=== PATIENT | male | born 1985 | race Two or more races ===

== ENCOUNTER → 2018-06-22 | Outpatient (CLI) | payer OTHER ==
[2018-06-22 12:23] LABS: Basophils # (auto) 0 uL; Basophils % (auto) 0.7 % (0.0-2.0); Eosinophils # (auto) 0.3 uL; Hemoglobin 15.5 g/dL (13.5-17.5); Lymphocytes # (auto) 1.8 uL; Lymphocytes % (auto) 29.7 % (10.0-50.0); Mean Corpuscular Hemoglobin 28.8 pg (28.0-32.0); Mean Corpuscular Hgb Conc. 33.7 g/dL (32.0-36.0); Mean Corpuscular Volume 85.3 fL (80.0-100.0); Monocytes # (auto) 0.3 uL; Neutrophils # (auto) 3.8 uL; Neutrophils % (auto) 60.6 % (37.0-80.0); Nucleated Red Blood Cells % 0.4 %; Platelet Count (auto) 237 10^3/uL (140-450); Red Blood Cells 5.39 10^6/uL (4.5-5.90); Red Cell Distribution Width 13.2 % (11.8-14.3); White Blood Cell 6.2 10^3/uL (4.4-10.8)
[2018-06-22 12:41] LABS: Albumin 4.2 g/dL (3.4-5.0); Calcium 9.3 mg/dL (8.5-10.1); Potassium 3.9 mmol/L (3.5-5.1)
[2018-06-22 12:48] LABS: BUN/Creatinine Ratio 17.3; Bilirubin, Direct 0.1 mg/dL (0-0.2); Bilirubin, Total 0.6 mg/dL (0.2-1.0); Total Protein 8.5 g/dL (6.4-8.2)
== END | disposition home or self-care (01) ==
LOC: LAB 08:40
PROVIDERS: ATTEND Internal Medicine Cardiovascular Disease
DX: Z00.01 Encounter for general adult medical examination with abnormal findings (principal); K74.1 Hepatic sclerosis; E29.1 Testicular hypofunction; E03.9 Hypothyroidism, unspecified; D64.9 Anemia, unspecified; E51.9 Thiamine deficiency, unspecified; E11.9 Type 2 diabetes mellitus without complications
CPT/HCPCS: 36415; 80048; 80061; 80076; 82306; 83036; 84402; 84403; 84443; 85025

== ENCOUNTER → 2019-07-03 | Outpatient (CLI) | payer OTHER ==
[2019-07-03 12:07] LABS: Basophils # (auto) 0.1 uL; Eosinophils # (auto) 0.3 uL; Eosinophils % (auto) 4.5 % (0.0-7.0); Hematocrit 44.8 % (41.0-53.0); Hemoglobin 15.4 g/dL (13.5-17.5); Lymphocytes # (auto) 2.2 uL; Lymphocytes % (auto) 34.1 % (10.0-50.0); Mean Corpuscular Hemoglobin 29.2 pg (28.0-32.0); Mean Corpuscular Hgb Conc. 34.4 g/dL (32.0-36.0); Mean Corpuscular Volume 84.8 fL (80.0-100.0); Monocytes # (auto) 0.3 uL; Monocytes % (auto) 5.2 % (0.0-12.0); Neutrophils # (auto) 3.5 uL; Neutrophils % (auto) 55.2 % (37.0-80.0); Nucleated Red Blood Cells % 0.2 %; Platelet Count (auto) 251 10^3/uL (140-450); Red Blood Cells 5.28 10^6/uL (4.5-5.90); Red Cell Distribution Width 13.4 % (11.8-14.3); White Blood Cell 6.4 10^3/uL (4.4-10.8)
[2019-07-03 12:34] LABS: Albumin 4.2 g/dL (3.4-5.0); Bilirubin, Direct 0.1 mg/dL (0-0.2); Bilirubin, Total 0.4 mg/dL (0.2-1.0); Calcium 9.2 mg/dL (8.5-10.1); Total Protein 8.2 g/dL (6.4-8.2); Uric Acid 6.4 mg/dL (3.5-7.2)
== END | disposition home or self-care (01) ==
LOC: LAB 09:09
PROVIDERS: ATTEND Internal Medicine
DX: Z00.00 Encounter for general adult medical examination without abnormal findings (principal); E03.9 Hypothyroidism, unspecified; K90.9 Intestinal malabsorption, unspecified; C61 Malignant neoplasm of prostate; E29.1 Testicular hypofunction; R70.0 Elevated erythrocyte sedimentation rate; M05.9 Rheumatoid arthritis with rheumatoid factor, unspecified; Z79.899 Other long term (current) drug therapy
CPT/HCPCS: 36415; 80048; 80061; 80076; 82306; 83036; 84153; 84403; 84443; 84550; 85025; 85652; 86431

== ENCOUNTER → 2019-07-10 | Outpatient (CLI) | payer OTHER | END | disposition home or self-care (01) | LOC: Rad HDHVI 14:56 | PROVIDERS: ATTEND Internal Medicine | DX: M25.511 Pain in right shoulder (principal); R07.9 Chest pain, unspecified; M54.2 Cervicalgia | CPT/HCPCS: 71101; 72040; 73030 ==

== ENCOUNTER → 2024-10-29 | Day surgery (SDC) | payer BC, OTHER ==
[~2024-10-29] VITALS: Ht 185.4 cm; Wt 132.2 kg
[~2024-10-29] MED LIST: DexAMETHasone SOD PHOS 10MG/1ML VIAL INJ ONE; HYDROmorphone HCL 2 MG/ML VL/or syr IV PRN; HYDROmorphone HCL 2 MG/ML VL/or syr ONE; KETOROLAC TROMETH 30 MG/ML 1ML VIAL IV ONE; KETOROLAC TROMETH 30 MG/ML 1ML VIAL ONE; MIDAZOLAM HCL 2MG/2ML 2ml VIAL (1mg/ml) IV PRN; MIDAZOLAM HCL 2MG/2ML 2ml VIAL (1mg/ml) ONE; MORPHINE SULFATE 4 MG/ML SYR/VIAL IV PRN; ONDANSETRON HCL 4 MG/2 ML VIAL IV ONE; PROPOFOL 10 MG/ML 20 ML IV ONE; ceFAZolin 2 GM/D5W100ml 100 ML IV ONE; ePHEDrine SULFATE 50 MG/ML AMP IV PRN; fentaNYL CITRATE 100 MCG/2 ML VL ONE; hydrALAZINE HCL 20 MG/ML VL IV PRN
--- NOTE | 2024-10-29 07:18 | ED.PDOC ---
Musculoskeletal HPI Comments 39 year old male presents to the ED with chief complaint of pre-op. Patient reports that he had injured his left bicep when trying to stop his kids from sliding into a tree on 10/13/24, causing a full bicep tear. Patient relays that he was advised by his orthopedist CARMINE Jenkins to come into the ED today for pre-op and admission to have his surgery performed today on his left bicep. Patient denies any numbness, weakness, or any other symptom at this time. Time Seen by MD: 07:13 Reviewed Notes: Nurses Notes, Medications, Allergies Allergies: Coded Allergies: Penicillins (Verified Allergy, Unknown, 10/29/24) Information Source: Patient, Spouse Mode of Arrival: Ambulatory Location: Left Timing: Weeks Prehospital treatment: None Severity: Moderate Able to Move Extremity: Yes Bear Weight: Fully Pain: Moderate Mechanism: Spontaneous Circumstances: Playing Onset of Symptoms: After Trauma Symptoms: Pain DVT Risk Factors: NONE Past Medical History Past Medical History (Other): Left full bicep tear Surgical History: Denies all surgeries Family History Family History: Reviewed,noncontributory to illness Social History Smoker: Non-Smoker Alcohol: Denies ETOH Use Drugs: Denies Drug Use Lives In: Home Constitutional: denies: chills, diaphoresis, fatigue, fever, malaise, sweats, weakness, others EENTM: denies: blurred vision, double vision, ear bleeding, ear discharge, ear drainage, ear pain, ear ringing, eye pain, eye redness, hearing loss, mouth pain, mouth swelling, nasal discharge, nose bleeding, nose congestion, nose pain, photophobia, tearing, throat pain, throat swelling, voice changes, others Respiratory: denies: cough, hemoptysis, orthopnea, SOB at rest, shortness of breath, SOB with excertion, stridor, wheezing, others Cardiovascular: denies: chest pain, dizzy spells, diaphoresis, Dyspnea on exertion, edema, irregular heart beat, left arm pain, lightheadedness, palpitations, PND, syncope, others Gastrointestinal: denies: abdomen distended, abdominal pain, blood streaked bowels, constipated, diarrhea, dysphagia, difficulty swallowing, hematemesis, melena, nausea, poor appetite, poor fluid intake, rectal bleeding, rectal pain, vomiting, others Genitourinary: denies: burning, dysuria, flank pain, frequency, hematuria, incontinence, penile discharge, penile sore, pain, testicle pain, testicle swelling, urgency, others Neurological: denies: dizziness, fainting, headache, left sided numbness, left sided weakness, numbness, paresthesia, pre-existing deficit, right sided numbness, right sided weakness, seizure, speech problems, tingling, tremors, weakness, others Musculoskeletal: denies: back pain, gout, joint pain, joint swelling, muscle pain, muscle stiffness, neck pain, others Integumetry: denies: bruises, change in color, change in hair/nails, dryness, laceration, lesions, lumps, rash, wounds, others Allergic/Immunocompromised: denies: Difficulty Healing, Frequent Infections, Hives, Itching, others Hematologic/Lymphatic: denies: anemia, blood clots, easy bleeding, easy bruising, swollen glands, others Endocrine: denies: excessive hunger, excessive sweating, excessive thirst, excessive urination, flushing, intolerance to cold, intolerance to heat, unexplained weight gain, unexplained weight loss, others Psychiatric: denies: anxiety, bipolar disorder, depression, hopeless, panic disorder, schizophrenia, sleepless, suicidal, others All Other Systems: Reviewed and Negative Physical Exam General Appearance: Moderate Distress, Normal HEENT: Normal ENT Inspection, PERRL/EOMI Neck: Full Range of Motion, Non-Tender, Normal, Normal Inspection Respiratory: Chest Non-Tender, Lungs Clear, No Accessory Muscle Use, No Respiratory Distress, Normal Breath Sounds Cardiovascular: No Edema, No JVD, No Murmur, No Gallop, Normal Peripheral Pulses, Regular Rate/Rhythm Breast Exam: Deferred Gastrointestinal: No Organomegaly, Non Tender, No Pulsatile Mass, Normal Bowel Sounds, Soft Genitalia: Deferred Pelvic: Deferred Rectal: Deferred Extremities: No calf tenderness, Normal capillary refill, Normal inspection, Normal range of motion, Non-tender, No pedal edema Musculoskeletal : Apperance: Normal Neurologic: Alert, systems design engineer II-XII nml as Tested, No Motor Deficits, Normal Affect, Normal Mood, No Sensory Deficits Cerebellar Function: Normal Reflexes: Normal Skin: Dry, Normal Color, Warm Peripheral Pulses: 3+ Radial (R), 3+ Radial (L) Lymphatic: No Adenopathy Was a procedure done? Was a procedure done?: No Differential Diagnosis EXT Differential Diagnosis: Sprain, Strain X-Ray, Labs, Meds, VS Vital Signs Date Time Temp Pulse Resp B/P (MAP) Pulse Ox O2 Delivery O2 Flow Rate FiO2 10/29/24 07:32 98.1 99 20 120/81 (94) 99 98.1 10/29/24 07:30 Room Air* 0 21 10/29/24 07:18 98.3 66 20 119/76 (90) 9 Lab Test 10/29/24 07:45 Range/Units White Blood Count 6.3 4.4-10.8 10^3/uL Red Blood Count 5.31 4.5-5.90 10^6/uL Hemoglobin 15.1 13.5-17.5 g/dL Hematocrit 44.7 41.0-53.0 % Mean Corpuscular Volume 84.2 80.0-100.0 fL Mean Corpuscular Hemoglobin 28.5 28.0-32.0 pg Mean Corpuscular Hemoglobin Concent 33.8 32.0-36.0 g/dL Red Cell Distribution Width 13.4 11.8-14.3 % Platelet Count 244 140-450 10^3/uL Mean Platelet Volume 7.8 6.9-10.8 fL Neutrophils (%) (Auto) 66.0 37.0-80.0 % Lymphocytes (%) (Auto) 23.9 10.0-50.0 % Monocytes (%) (Auto) 5.0 0.0-12.0 % Eosinophils (%) (Auto) 4.5 0.0-7.0 % Basophils (%) (Auto) 0.6 0.0-2.0 % Neutrophils # (Auto) 4.1 1.6-8.6 10 ^3/uL Lymphocytes # (Auto) 1.5 0.4-5.4 10 ^3/uL Monocytes # (Auto) 0.3 0-1.3 10 ^3/uL Eosinophils # (Auto) 0.3 0-0.8 10 ^3/uL Basophils # (Auto) 0 0-0.2 10 ^3/uL Nucleated Red Blood Cells 0.3 % Prothrombin Time 10.3 9.3-11.8 sec Prothrombin Time INR 0.97 0.9-1.15 Activated Partial Thromboplast Time 26.6 24.5-34.5 SEC Sodium Level 140 136-145 mmol/L Potassium Level 4.2 3.5-5.1 mmol/L Chloride Level 107 98-107 mmol/L Carbon Dioxide Level 26 20-31 mmol/L Anion Gap 7 5-15 Blood Urea Nitrogen 12 9-23 mg/dL Creatinine 0.91 0.700-1.30 mg/dL Glomerular Filtration Rate Calc 111 >90 mL/min BUN/Creatinine Ratio 13.2 10.0-20.0 Serum Glucose 107 H 74-106 mg/dL Calcium Level 10.1 8.7-10.4 mg/dL Total Bilirubin 0.5 0.2-1.0 mg/dL Aspartate Amino Transferase (AST) 20 13-40 U/L Alanine Aminotransferase (ALT) 28 7-40 U/L Alkaline Phosphatase Pending Total Protein 7.9 5.7-8.2 g/dL Albumin 5.0 H 3.2-4.8 g/dL Patient alert. Came in because of left arm pain pain Was supposed to be operate on today. Vitals stable. He does have biceps injury. Spoke with the orthopedic surgeon. Explained to the family Continue monitoring. Chest XR:FINDINGS: The heart and mediastinal contours are grossly unremarkable. There is no evidence of pleural disease. The lungs are clear. The bony structures of the chest are intact without fracture. IMPRESSION: 1. No evidence of acute disease. Time of 1ST Reevaluation: 08:13 Reevaluation 1ST: Unchanged Patient Education/Counseling: Diagnosis, Treatment Family Education/Counseling: Diagnosis, Treatment Additional Information Previous visit documents reviewed: None The following tests were ordered, and results were reviewed by me: Chest XR, CBC, BMP, UA, PTPTT Additional Information was gathered from interviewing the following independent historians: I reviewed and agreed with the following test results read by other providers: Chest XR I discussed treatment and results with medical personnel and . Departure 1 Departure Time of Disposition: 07:28 Impression: Primary Impression: Injury of biceps brachii muscle Disposition: ADMITTED INPATIENT Admit to: Med Surg Condition: Guarded Critical Care Note Critical Care Time?: No Stability Stability form required: No Heart Score Heart Score: Heart Score Response (Comments) Value History N/A 0 EKG N/A 0 Age N/A 0 Risk Factors N/A 0 Troponin N/A 0 Total 0 I personally scribed for DAVE PASCUAL MD ([email or web address]) on 10/29/24 at 07:18. Electronically submitted by Manuel Vásquez ([email or web address]). I personally scribed for DAVE PASCUAL MD ([email or web address]) on 10/29/24 at 08:36. Electronically submitted by Manuel Vásquez ([email or web address]). DAVE PASCUAL MD Oct 29, 2024 07:18
[2024-10-29 08:05] LABS: Basophils # (auto) 0 10 ^3/uL (0-0.2); Basophils % (auto) 0.6 % (0.0-2.0); Eosinophils # (auto) 0.3 10 ^3/uL (0-0.8); Eosinophils % (auto) 4.5 % (0.0-7.0); Hematocrit 44.7 % (41.0-53.0); Hemoglobin 15.1 g/dL (13.5-17.5); Lymphocytes # (auto) 1.5 10 ^3/uL (0.4-5.4); Lymphocytes % (auto) 23.9 % (10.0-50.0); Mean Corpuscular Hemoglobin 28.5 pg (28.0-32.0); Mean Corpuscular Hgb Conc. 33.8 g/dL (32.0-36.0); Mean Corpuscular Volume 84.2 fL (80.0-100.0); Monocytes # (auto) 0.3 10 ^3/uL (0-1.3); Neutrophils # (auto) 4.1 10 ^3/uL (1.6-8.6); Nucleated Red Blood Cells % 0.3 %; Platelet Count (auto) 244 10^3/uL (140-450); Red Blood Cells 5.31 10^6/uL (4.5-5.90); Red Cell Distribution Width 13.4 % (11.8-14.3); White Blood Cell 6.3 10^3/uL (4.4-10.8)
[2024-10-29 08:17] LABS: Alanine Aminotransferase 28 U/L (7-40); Anion Gap 7 (5-15); Aspartate Aminotransferase 20 U/L (13-40); BUN/Creatinine Ratio 13.2 (10.0-20.0); Blood Urea Nitrogen 12 mg/dL (9-23); Calcium 10.1 mg/dL (8.7-10.4); Carbon Dioxide 26 mmol/L (20-31); Potassium 4.2 mmol/L (3.5-5.1); Sodium 140 mmol/L (136-145); Total Protein 7.9 g/dL (5.7-8.2)
[2024-10-29 08:18] LABS: Bilirubin, Total 0.5 mg/dL (0.2-1.0)
[2024-10-29 08:19] LABS: Chloride 107 mmol/L (98-107); Glucose 107 mg/dL (74-106)
--- NOTE | 2024-10-29 08:20 | DVH ---
INDICATION: sob TECHNIQUE: Frontal view of the chest. COMPARISON: None FINDINGS: The heart and mediastinal contours are grossly unremarkable. There is no evidence of pleural disease . The lungs are clear. The bony structures of the chest are intact without fracture. IMPRESSION: 1. No evidence of acute disease.
[2024-10-29 08:21] LABS: INR 0.97 (0.9-1.15); Partial Thromboplastin Time 26.6 SEC (24.5-34.5); Prothrombin Time 10.3 sec (9.3-11.8)
[2024-10-29 10:10] LABS: Alkaline Phosphatase 71 U/L (46-116)
[2024-10-29 10:28] LABS: Urine Bacteria None Seen /hpf (None Seen)
[2024-10-29 11:47] LABS: Urine Blood TRACE /uL (Negative); Urine Clarity Clear (Clear); Urine Color Yellow (Yellow); Urine Mucus FEW (None Seen); Urine Protein, UAD Negative (Negative); Urine Specific Gravity 1.027 (1.001-1.035); Urine Squamous Epithelial Cell FEW /hpf (<5); Urine Urobilinogen Normal (Negative); Urine WBC 3 /HPF (0-3)
[2024-10-29] MEDS: BUPIVACAINE 0.5% MPF INJ 30ML SDV IJ ONE (13:26)
--- NOTE | 2024-10-29 14:52 | DVHOP2 ---
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 Clinical and radiological evaluation demonstrated distal biceps rupture. He already had an MRI. He had felt a pop while doing some work. Nonoperative and operative management options were disc ussed. Surgery in the form of distal bicep tendon repair was discussed. Pros and cons were discussed. Specifically posterior interosseous nerve, median antebrachial cutaneous nerve and neurovascular injury was discussed with him in very detail manner. Consequences of PIN palsy including wrist drop, loss of thumb extension, need for further surgeries, need for nerve exploration, need for tendon transfer, need for volar splint was discussed. He decided to proceed with surgical option. The patient was informed of the risks and benefits of the procedure. These include but are not limited to complications of anesthesia, postoperative infection, incomplete relief of symptoms, recurrence of symptoms, damage to blood vessels, nerves and tendons, deep venous thrombosis, pulmonary embolism and possible need for repeat surgery in the future. Complications: None Estimated Blood Loss: 5 ml Indications for Surgery: The patient presented with injury to the elbow. Clinical and radiological evaluation demonstrated distal biceps tendon rupture. Non-op and operative management was clearly discussed on multiple occasions, first by the PA and then with me in the pre-op area. Posterior Interosseous nerve deficit was discussed in detail. It was mentioned that he can choose non-op management and still expect good to excellent results with some weakness in supination and occasional cramping. Benefits, risks and treatment alternatives to surgery were discussed. Pros and cons of various treatment options were discussed. Surgical complications including neurovascular injury, stiffness, heterotropic ossification, infection, dislocation, fracture, loss of limb or life were discussed. The patient/family decided to proceed with the surgery Name of Procedure Performed Left distal biceps tendon repair Procedure Details Procedure Details: The patient was identified in the pre-operative area and consent was verified. Positioning: The patient was positioned supine with the arm extended and the forearm in a neutral position. A tourniquet was applied to minimize blood loss. A time out was called for verifying the identity of the patient, the site of the surgery, the availability of implants and Xrays and allergies to medications. Incision: A longitudinal incision was made over the antecubital fossa to expose the deep layer. This was carefully dissected. The brachioradialis muscle was retracted laterally. The cutaneous nerve was protected. The biceps tendon and the radial tuberosity footprint was identified. Identification of the Tendon: The ruptured biceps tendon was identified.It was minimally retracted and was mobilized to reach the radial tuberosity. Preparation cf the Tendon: The tendon was debrided to remove any degenerated tissue. The tendon was then prepared for reattachment. A guide pin was inserted in the radial tuberosity. The arm was kept in full supination/hypersupination.The guide pin was directed ulnar and slightly proximal. Reattachment: Bone Tunnel Technique: A tunnel was drilled through the radial tuberosity, only the proximal cortex and the tendon was passed through this tunnel and secured with sutures or a button device.Irrigation was given to remove bone debris.Tension slide was used. The suture was now passed through the tendon and tied. Excellent fixation was noted. C-arm imaging was used to confirm that the button has flipped. Tensioning: The tendon was tensioned appropriately to restore the normal length- tension relationship of the biceps muscle. Closure: The incision was closed in layers, with absorbable sutures for the deep er layers and monocryl for the skin. Tourniquet was released. Minimal bleeding was noted. Postoperative Care: A splint was applied to immobilize the elbow. Pain management and instructions for elevation and ice application were provided. Condition Good Disposition Home DENA TY MD Oct 29, 2024 14:52
[2024-10-29 14:55] VITALS: PULSE 94; RESP 17; TEMP 97.1; O2SAT 99
--- NOTE | 2024-10-29 15:01 | DVH ---
CLINICAL INDICATION: TENDON REPAIR TECHNIQUE: 7 radiographic views of the intraoperative images of a left biceps repair were obtained. Comparison: None FINDINGS/IMPRESSION: 9.2 seconds Cumulative dose: 0.31 mGy
--- NOTE | 2024-10-29 15:01 | DVH ---
C-ARM FLUOROSCOPY: PROCEDURE: Biceps tendon repair, left FLUOROSCOPY TIME: 9.2 seconds DAP: 0.31 mgy FINDINGS: Spot intraoperative C arm radiographs demonstrating left biceps tendon repair. IMPRESSION: Please refer to surgical report for detailed findings.
[2024-10-29 15:15] VITALS: PULSE 87; RESP 14; O2SAT 99
[2024-10-29 15:25] VITALS: PULSE 91; RESP 16; O2SAT 95
[2024-10-29 15:40] VITALS: BP 141/78; PULSE 74; RESP 14; O2SAT 96
== END | disposition home or self-care (01) ==
LOC: ER 06:58 → SUR 12:42
PROVIDERS: ATTEND Orthopaedic Surgery Sports Medicine
DX: S46.212A Strain of muscle, fascia and tendon of other parts of biceps, left arm, initial encounter (principal); X58.XXXA Exposure to other specified factors, initial encounter; Y93.89 Activity, other specified; Y92.89 Other specified places as the place of occurrence of the external cause; Y99.8 Other external cause status; Z88.0 Allergy status to penicillin
CPT/HCPCS: 24342; 36415; 71045; 73070; 80053; 81001; 85025; 85610; 85730; 86850; 86900; 86901; C1713; J1100; J1171; J1885; J2250; J2704; J3010; J3490; 76000